=== PATIENT | female | born 1980 | race Caucasian/White ===

== ENCOUNTER → 2018-02-03 | Day surgery (SDC) | payer OTHER ==
[2018-02-01 15:59] LABS: BASOPHILS # (AUTO) 0.1 (0.0-0.1); BASOPHILS % 0.8 % (0.0-1.0); EOSINOPHILS # (AUTO) 0.2 (0.0-0.4); EOSINOPHILS % 1.6 % (0.0-6.0); HEMATOCRIT 39.7 % (34.2-44.1); HEMOGLOBIN 13.1 g/dL (12.0-16.0); LYMPHOCYTES # (AUTO) 3.9 (1.0-3.2); LYMPHOCYTES % 36.8 % (18.0-39.1); MEAN CORPUSCULAR HEMOGLOBIN 29.2 pg (28-32); MEAN CORPUSCULAR VOLUME 88.4 fL (81-99); MONOCYTES # (AUTO) 0.6 (0.2-0.8); MONOCYTES % 5.7 % (4.4-11.3); NEUTROPHILS # (AUTO) 5.7 (2.1-6.9); NEUTROPHILS % 54.7 % (38.7-80.0); PLATELET COUNT 356 x10e3/uL (140-360); RED BLOOD COUNT 4.49 x10e6/uL (3.6-5.1); RED CELL DISTRIBUTION WIDTH 12.5 % (11.7-14.4)
[2018-02-01 16:13] LABS: ANION GAP 18.4 mmol/L (8-16); BLOOD UREA NITROGEN 13 mg/dL (7-26); BUN/CREATININE RATIO 15 (6-25); CALCIUM 9.9 mg/dL (8.4-10.2); CARBON DIOXIDE 23 mmol/L (22-29); CHLORIDE 101 mmol/L (98-107); CREATININE, SERUM 0.85 mg/dL (0.57-1.11); EST GLOMERULAR FILTRATION RATE > 60 ML/MIN (60-); GLUCOSE 119 mg/dL (74-118); POTASSIUM 3.4 mmol/L (3.5-5.1); SODIUM 139 mmol/L (136-145)
[~2018-02-03] MED LIST: ACETAMINOPHEN 1000 MG/100 ML IV ONE; ALBUTEROL SULFAT2 MG PO; ALLOPURINOL100 MG PO; BENADRYL25 M1; CEFTRIAXONE SOD 1 GM VIAL ONE; DEXAMETHASONE SOD PHOS INJ 4 MG/ML VIAL IV ONE; FENTANYL CITRATE/PF 100MCG/2 ML INJ ONE; IBUPROFEN400 MG PO; IOPAMIDOL 610MG/1ML 300 MG/ML VIAL IV ONE; LIDOCAINE HCL 2% LOCAL INJ 5 ML SDV VIAL INJ ONE; MIDAZOLAM HCL 2 MG/2 ML VIAL ONE; ONDANSETRON HCL INJ 2 MG/ML VIAL IV ONE; PROPOFOL IV EMULSION 10 MG/ML 20 ML VIAL IV ONE; SEVOFLURANE INHAL SOLN 250 ML PEN BTL INH ONE; TUMERIC
[2018-02-03 12:30] VITALS: BP 149/88
--- NOTE | 2018-02-17 05:42 | Operative Report ---
DATE OF PROCEDURE: February 03, 2018 PREOPERATIVE DIAGNOSIS: Right mid-ureteral stone. POSTOPERATIVE DIAGNOSIS: Right mid-ureteral stone. OPERATIVE PROCEDURES PERFORMED 1. Cystoscopy. 2. Right retrograde pyelogram. 3. Right ureteroscopy with laser lithotripsy. 4. Placement of right ureteral stent. ANESTHESIA: General anesthesia. ESTIMATED BLOOD LOSS: Minimal. INDICATIONS: Ms. Jojo Crooks is a 37-year-old woman who presented with right flank pain who was found to have approximately 9-mm right mid ureteral stone with moderate hydronephrosis noted behind this. She now presents for definitive surgical management of this problem. PROCEDURE IN DETAIL: Patient was brought to the operating table, placed in supine position, and after administration of general anesthesia was placed in the dorsal lithotomy position and prepped and draped in the usual fashion. Cystourethroscopy was performed using 22-Kittitian cystoscope. The anterior and posterior urethra were noted to be normal. The bladder was entered without difficulty. Upon entrance into the bladder, the ureteral orifices were in normal anatomical position. There were no mucosal lesions identified. Using a 5-Kittitian open-ended catheter, a right retrograde pyelogram was performed. This revealed a stone approximately 9 mm in diameter and in the mid ureter with moderate hydronephrosis noted behind it. An Amplatz wire was placed up the right ureter and past the stone into the right renal pelvis under fluoroscopic guidance. An 11 x 13 ureteral access sheath was then placed up to approximately 1 cm distal to the stone. Flexible ureteroscopy was then performed. The visualized ureteral mucosa was normal just distal to the stone. There was some narrowing; however, at the ureter just at the stone. The stone was recently mobile. Using the Holmium laser, the stone was completely destroyed to dust. Some fragments were removed and sent to pathology for microscopic analysis. Once the stone was removed, visualization of the remainder of the ureter revealed no residual large stones or calcifications. The ureteroscope and sheath were removed and a 6-Kittitian stent for her height was placed such that 1 coil was in the renal pelvis and the subsequent coil was in the bladder. The string was allowed to exit the urethral meatus. The cystoscope and the sheath were remove and the patient was returned to supine position. Anesthesia was reversed and she was transferred to a bed and taken to the postanesthesia care unit in good condition. Of note, the needle and instrument counts were correct at the conclusion of the case. Job#: [id number] VAS
== END | disposition home or self-care (01) ==
LOC: OR 08:34
PROVIDERS: ATTEND Urology
DX: N20.1 Calculus of ureter (principal); J45.909 Unspecified asthma, uncomplicated; E66.01 Morbid (severe) obesity due to excess calories; Z88.6 Allergy status to analgesic agent; Z88.0 Allergy status to penicillin; Z01.812 Encounter for preprocedural laboratory examination; Z68.42 Body mass index [BMI] 45.0-49.9, adult; Z84.1 Family history of disorders of kidney and ureter
CPT/HCPCS: 36415; 52356; 74420; 80048; 81025; 85025; 88300; C1766; C2617; J0131; J0696; J1100; J2001; J2250; J2405; J2704; Q9967